=== PATIENT | male | born 1965 | race American Indian/Alaskan Native ===

== ENCOUNTER 2017-04-01 08:52 | Emergency (ER) | payer SELFPAY ==
[2017-04-01 09:36] VITALS: BP 161/112
--- NOTE | 2017-04-01 09:43 | Emergency Department Report ---
Chief Complaint: Urogenital-Male Stated Complaint: PAIN ON RIGHT SIDE Time Seen by Provider: 04/01/17 09:38 - HPI History of Present Illness: PT c/o pain and swelling to his R testicle x 3 days. - ROS Review of Systems: - dysuria + testicle swelling and pain - Exam Vital Signs: Vital Signs 04/01/17 09:31 Temperature 98 F Pulse Rate 71 Respiratory 18 Rate Blood Pressure 161/112 O2 Sat by Pulse 98 Oximetry Physical Exam: non toxic steady gait obese abd MSE screening note: Focused history and physical exam performed. Due to findings the following was ordered: labs, us ED Disposition for MSE Condition: Stable Referrals: PRIMARY CARE, [Primary Care Provider] - 3-5 Days
[2017-04-01 10:30] LABS: Bilirubin,Urine NEG (Negative); Blood,Urine SM (Negative); Ketones,Urine NEG (Negative); Leukocyte Esterase,Urine LG (Negative); Mucus,Urine FEW /HPF; Nitrite,Urine NEG (Negative); Protein,Urine <15 mg/dL mg/dL (Negative); Urobilinogen,Urine < 2.0 mg/dL (<2.0)
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
--- NOTE | 2017-04-01 11:48 | Ultrasound Report ---
ULTRASOUND TESTICULAR DOPPLER COMPLETE History: Right sided scrotal pain and swelling. Technique: Trans-scrotal ultrasound with spectral doppler interrogation. Findings: The right testicle measures 3.5 x 2.8 x 4.5 cm. The left testicle measures 3.4 x 2.7 x 2.7 cm. There is no evidence for testicular cyst, mass or calcifications. There does appear to be increased color Doppler flow to the right testicle compared to the left which could represent orchitis. Both epididymides appear enlarged and heterogeneous. Bilateral epididymitis could be present. Small to medium bilateral hydroceles are identified. No varicocele identified. Spectral waveforms demonstrate arterial flow to both testicles. IMPRESSION: Findings suggestive of right orchitis. Bilateral epididymitis? Small to medium bilateral hydroceles.
[2017-04-01] MEDS ORDERED: ZITHROMAX PO ONE (12:50)
[2017-04-01] MEDS ORDERED: XYLOCAINE 1% MPF 5 mL INFILTRATI ONE (12:50)
[2017-04-01] MEDS ORDERED: ROCEPHIN IM ONE (12:50)
== END 2017-04-01 13:29 | disposition home or self-care (01) ==
LOC: ED 08:52
DX: N45.2 Orchitis (principal); N39.0 Urinary tract infection, site not specified; I10 Essential (primary) hypertension; J45.909 Unspecified asthma, uncomplicated
CPT/HCPCS: 81001; 87086; 87591; 93975; 96372; 99284; J0696

== ENCOUNTER 2018-05-30 15:06 | Emergency (ER) | payer OTHER, MEDICAID ==
[2018-05-30] MEDS ORDERED: TORADOL IM ONE (18:02)
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
--- NOTE | 2018-05-30 18:50 | XRay Report ---
FINAL REPORT PROCEDURE: XR SPINE CERVICAL 2-3V TECHNIQUE: Cervical spine, four views HISTORY: neck pain COMPARISON: No prior studies are available for comparison. FINDINGS: There is straightening of the cervical lordosis. Vertebral body heights and alignment are maintained. Prevertebral soft tissues are within normal limits in thickness. Disc spaces are preserved. Small anterior osteophytes are seen at C5-6. Odontoid process is intact. IMPRESSION: Mild degenerative disc changes at C5-6
--- NOTE | 2018-05-30 18:51 | XRay Report ---
FINAL REPORT PROCEDURE: XR SPINE THORACIC 2V TECHNIQUE: Thoracic spine, AP and lateral views HISTORY: back pain COMPARISON: No prior studies are available for comparison. FINDINGS: No scoliosis. There is mild multilevel degenerative disc change, with disc space narrowing and anterior osteophyte formation. Vertebral body heights and alignment are maintained. IMPRESSION: No acute osseous abnormality is identified
--- NOTE | 2018-05-30 18:52 | XRay Report ---
FINAL REPORT PROCEDURE: XR SPINE LUMBOSACRAL 2-3V TECHNIQUE: Lumbosacral spine, three views HISTORY: back pain COMPARISON: No prior studies are available for comparison. FINDINGS: No scoliosis. Vertebral body heights and alignment are maintained. There are small anterior osteophytes noted from L2-3 through L5-S1. Disc spaces are preserved. IMPRESSION: Mild multilevel degenerative disc changes
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
[2018-05-30 20:07] VITALS: BP 142/95
== END 2018-05-30 20:07 | disposition home or self-care (01) ==
LOC: ED 15:06
DX: M43.6 Torticollis (principal); L98.9 Disorder of the skin and subcutaneous tissue, unspecified; V09.9XXA Pedestrian injured in unspecified transport accident, initial encounter; Y93.89 Activity, other specified; Y92.89 Other specified places as the place of occurrence of the external cause; Y99.8 Other external cause status
CPT/HCPCS: 72040; 72070; 72100; 96372; 99283; J1885

== ENCOUNTER 2018-07-22 00:24 | Emergency (ER) | payer MEDICAID, OTHER ==
[2018-07-22] MEDS ORDERED: NACL 0.9% 1000 ML 1,000 ML IV ONE (00:37)
[2018-07-22 01:12] LABS: Basophils % (Auto) 0.4 % (0.0-1.8); Eosinophils # (Auto) 0.1 K/mm3 (0.0-0.4); Eosinophils % (Auto) 1.1 % (0.0-4.3); Hemoglobin 12.4 gm/dl (11.8-15.2); Lymphocytes # (Auto) 2.6 K/mm3 (1.2-5.4); Lymphocytes % (Auto) 37.2 % (13.4-35.0); Mean Corpuscular HGB Conc 32 % (32-34); Mean Corpuscular Volume 76 fl (84-94); Monocytes # (Auto) 0.4 K/mm3 (0.0-0.8); Monocytes % (Auto) 5.8 % (0.0-7.3); Platelet Count 261 K/mm3 (140-440); Red Blood Count 5.14 M/mm3 (3.65-5.03)
[2018-07-22 01:16] LABS: Mean Corpuscular Hemoglobin 24 pg (28-32)
[2018-07-22 01:29] LABS: Alanine Aminotransferase 24 units/L (7-56); BUN/Creatinine Ratio 8; Blood Urea Nitrogen 10 mg/dL (9-20); Calcium 9.1 mg/dL (8.4-10.2); Hemolysis Index 10; Lipase 26 units/L (13-60)
[2018-07-22 01:33] LABS: INR 0.98 (0.87-1.13); Partial Thromboplastin Time 26.3 Sec. (24.2-36.6)
[2018-07-22] MEDS ORDERED: CATAPRES PO ONE (02:02)
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
[2018-07-22 04:25] VITALS: BP 133/91
== END 2018-07-22 04:10 | disposition home or self-care (01) ==
LOC: ED 00:24
DX: K62.5 Hemorrhage of anus and rectum (principal); I10 Essential (primary) hypertension; J45.909 Unspecified asthma, uncomplicated; E78.00 Pure hypercholesterolemia, unspecified
CPT/HCPCS: 36415; 80053; 83690; 85025; 85610; 85730; 86850; 86900; 86901; 99284